=== PATIENT | male | born 1970 | race Caucasian/White ===

== ENCOUNTER → 2022-08-07 | Day surgery (SDC) | payer BC ==
--- NOTE | 2022-08-07 12:17 | RAD REPORT ---
EXAM DESCRIPTION: US - Guided FNA Non Breast - 08/07/2022 10:48 am CLINICAL HISTORY: R22.42 COMPARISON: No comparisons FINDINGS: Preoperative diagnosis: Left groin mass. Post operative diagnosis: Same. Conscious Sedation: None Fluoroscopy time: None Contrast used: None Estimated blood loss: Minimal Specimens:3 x 18 gauge core specimens. The left groin was prepped and draped in the usual sterile fashion. 1% lidocaine was infiltrated into the subcutaneous tissues for local anesthesia. Real time ultrasound scanning of the left groin demon strated irregular hypoechoic mass.. Under ultrasound guidance, using a 18-gauge, 6 cm long, 2 cm thro w core biopsy gun, 3 specimens were obtained of this lesion and sent to pathology for evaluation. The re were no complications. IMPRESSION: Technically successful left groin mass ultrasound-guided core biopsy.
== END ==
LOC: FNA 08:00
PROVIDERS: ATTEND Surgery
PROC: 07DJ3ZX Extraction of Left Inguinal Lymphatic, Percutaneous Approach, Diagnostic (ICD-10-PCS; principal; 2022-08-07)
DX: C82.95 Follicular lymphoma, unspecified, lymph nodes of inguinal region and lower limb (principal)
CPT/HCPCS: 88305